=== PATIENT | male | born 1995 ===

== ENCOUNTER 2020-04-16 22:06 | Emergency (ER) | payer SELFPAY ==
[2020-04-17] MEDS ORDERED: KETOROLAC 30 MG/1 ML INJ IM ONE (02:59)
--- NOTE | 2020-04-17 03:17 | Emergency Department Report ---
ED General Adult HPI - General Chief complaint: Back Pain/Injury Stated complaint: HURT AT WORK LIFTING A BUCKET OF CONCERT Time Seen by Provider: 04/17/20 02:16 Source: patient Mode of arrival: Ambulatory Limitations: No Limitations - History of Present Illness Initial comments: 25-year-old male patient presents with complaints of lower back pain x2 days after lifting a heavy item at work. Patient rates his pain as a 10/10 in severity and states ibuprofen is not helping. He is not currently following with Worker's Comp. He denies any loss of bladder/bowel control, numbness/tingling/weakness in his limbs, difficulty with ambulation, or urinary symptoms. -: Sudden - Related Data Previous Rx's Medication Instructions Recorded Last Taken Type Acetaminophen/Codeine [Tylenol 1 tab PO Q8H PRN #8 tab 04/17/20 Unknown Rx /Codeine # 3 tab] Diclofenac Sodium 50 mg PO TID PRN #21 tablet. 04/17/20 Unknown Rx methOCARBAMOL [Robaxin TAB] 750 mg PO Q8H PRN #30 tablet 04/17/20 Unknown Rx ED Review of Systems ROS: Stated complaint: HURT AT WORK LIFTING A BUCKET OF [employer]CERT Other details as noted in HPI Constitutional: denies: chills, diaphoresis, fever, malaise, weakness Respiratory: denies: shortness of breath Cardiovascular: denies: chest pain Gastrointestinal: denies: abdominal pain Musculoskeletal: back pain Skin: denies: change in color Neurological: denies: weakness, numbness, paresthesias, abnormal gait ED Past Medical Hx - Past Medical History Previous Medical History?: No - Surgical History Past Surgical History?: No - Social History Smoking Status: Current Every Day Smoker Substance Use Type: Alcohol - Medications Home Medications: Home Medications Medication Instructions Recorded Confirmed Last Taken Type Acetaminophen/Codeine [Tylenol 1 tab PO Q8H PRN #8 tab 04/17/20 Unknown Rx /Codeine # 3 tab] Diclofenac Sodium 50 mg PO TID PRN #21 tablet. 04/17/20 Unknown Rx methOCARBAMOL [Robaxin TAB] 750 mg PO Q8H PRN #30 tablet 04/17/20 Unknown Rx ED Physical Exam - General Limitations: No Limitations General appearance: alert, in no apparent distress, obese - Head Head exam: Present: atraumatic, normocephalic - Eye Eye exam: Present: normal appearance. Absent: scleral icterus - Neck Neck exam: Present: normal inspection - Respiratory Respiratory exam: Absent: respiratory distress - Cardiovascular Cardiovascular Exam: Present: regular rate - GI/Abdominal GI/Abdominal exam: Present: soft. Absent: tenderness - Extremities Exam Extremities exam: Present: full ROM - Back Exam Back exam: Present: normal inspection, paraspinal tenderness (Lower lumbar), vertebral tenderness (Lower lumbar) - Neurological Exam Neurological exam: Present: alert, oriented X3, normal gait. Absent: motor sensory deficit - Expanded Neurological Exam Expanded Sensory exam: Lower Extremity Light Touch: Normal Motor strength exam: RUE: 5, LUE: 5, RLE: 5, LLE: 5 - Psychiatric Psychiatric exam: Present: normal affect, normal mood - Skin Skin exam: Present: warm, dry, intact, normal color. Absent: rash, cyanosis, diaphoretic, erythema, ecchymosis ED Course Vital Signs 04/16/20 22:54 Temperature 98.4 F Pulse Rate 80 Respiratory 12 Rate Blood Pressure 148/72 O2 Sat by Pulse 98 Oximetry ED Medical Decision Making - Radiology Data Radiology results: report reviewed LUMBAR SPINE 3 VIEWS INDICATION / CLINICAL INFORMATION: pain after heavy lifting. COMPARISON: None available. FINDINGS: VERTEBRAE: No acute fracture. No significant malalignment. DISC SPACES / FACET JOINTS:No significant abnormality. PARASPINAL SOFT TISSUES:No significant abnormality. ADDITIONAL FINDINGS: None. - Medical Decision Making 25-year-old male patient presents with complaints of lower back pain x2 days after lifting a heavy item at work. Patient rates his pain as a 10/10 in severity and states ibuprofen is not helping. He is not currently following with Worker's Comp. He denies any loss of bladder/bowel control, numbness/tingling/weakness in his limbs, difficulty with ambulation, or urinary symptoms. There is tenderness to palpation of the lower vertebral spine without obvious deformity noted on exam. He is neurologically intact. X-ray of the lumbar spine is negative for any acute bony abnormalities. Patient given Toradol and states his symptoms have significantly improved. He is well-appearing and stable for discharge home. Recommend follow-up with primary care for back strain. Prescriptions for Robaxin, diclofenac, and Tylenol 3 given. Strict return precautions were discussed in detail with patient who verbalizes understanding. Critical care attestation.: If time is entered above; I have spent that time in minutes in the direct care of this critically ill patient, excluding procedure time. ED Disposition Clinical Impression: Low back strain Qualifiers: Encounter type: initial encounter Qualified Code(s): S39.012A - Strain of muscle, fascia and tendon of lower back, initial encounter Disposition: TO HOME OR SELFCARE Is pt being admited?: No Condition: Stable Instructions: Low Back Strain (ED) Prescriptions: Diclofenac Sodium 50 mg PO TID PRN #21 tablet.dr PRN Reason: Pain methOCARBAMOL [Robaxin TAB] 750 mg PO Q8H PRN #30 tablet PRN Reason: muscle spasm/tightness Acetaminophen/Codeine [Tylenol /Codeine # 3 tab] 1 tab PO Q8H PRN #8 tab PRN Reason: Severe pain Referrals: [facility] [Provider Group] - 2-3 Days Forms: Work/School Release Form(ED) Print Language: ARMENIAN
--- NOTE | 2020-04-17 03:42 | XRay Report ---
LUMBAR SPINE 3 VIEWS INDICATION / CLINICAL INFORMATION: pain after heavy lifting. COMPARISON: None available. FINDINGS: VERTEBRAE: No acute fracture. No significant malalignment. DISC SPACES / FACET JOINTS:No significant abnormality. PARASPINAL SOFT TISSUES:No significant abnormality. ADDITIONAL FINDINGS: None. Signer Name: Zheng Holland MD Signed: 04/17/2020 3:37 AM Workstation Name: [id number]
[2020-04-17 06:37] VITALS: BP 140/80
== END 2020-04-17 04:14 | disposition home or self-care (01) ==
LOC: ED 22:06
DX: S39.012A Strain of muscle, fascia and tendon of lower back, initial encounter (principal); F17.200 Nicotine dependence, unspecified, uncomplicated; Z79.899 Other long term (current) drug therapy; X50.0XXA Overexertion from strenuous movement or load, initial encounter; Y93.89 Activity, other specified; Y92.89 Other specified places as the place of occurrence of the external cause; Y99.8 Other external cause status
CPT/HCPCS: 72100; 96372; 99283; J1885